=== PATIENT | male | born 1960 | race Caucasian/White ===

== ENCOUNTER 2024-04-20 15:39 | Inpatient (IN) | payer MEDICARE, MEDICAID ==
[~2024-04-20] VITALS: Ht 172.7 cm; Wt 90.5 kg
[2024-04-20] MEDS: LIDOcaine 1% W/epiNEPHrine 1:100,000 20ml vial IJ ONE (16:43)
[2024-04-20 16:59] LABS: BASOPHILS % (AUTO) 0.2 % (0-1); EOSINOPHILS # (AUTO) 0.1 X10'3 (0-0.9); EOSINOPHILS % (AUTO) 0.8 % (0-6); HEMATOCRIT 36.8 % (42.0-52.0); HEMOGLOBIN 12.3 g/dl (14.0-17.9); LYMPHOCYTES # (AUTO) 0.9 X10'3 (1.1-4.8); LYMPHOCYTES % (AUTO) 5.9 % (21-51); MEAN CORPUSCULAR HEMOGLOBIN 31.8 PG (27.0-31.0); MEAN CORPUSCULAR HGB CONC 33.4 g/dL (33.0-36.5); MEAN CORPUSCULAR VOLUME 95.4 FL (78-98); MEAN PLATELET VOLUME 7.9 FL (7.4-10.4); MONOCYTES # (AUTO) 1.4 X10'3 (0-0.9); MONOCYTES % (AUTO) 9.8 % (2-12); NEUTROPHILS # (AUTO) 12.2 X10'3 (1.8-7.7); NEUTROPHILS % (AUTO) 83.3 % (42-75); PLATELET COUNT 242 X10'3 (140-440); RED BLOOD COUNT 3.86 X10'6 (4.70-6.10); RED CELL DISTRIBUTION WIDTH 14.1 % (11.5-14.5); WHITE BLOOD COUNT 14.6 X10'3 (4.5-11.0)
[2024-04-20 17:08] LABS: ALBUMIN 3.3 G/DL (3.4-5.0); ANION GAP 9 (8-16); BLOOD UREA NITROGEN 20 MG/DL (7-18); CALCIUM 8.7 MG/DL (8.5-10.1); CHLORIDE 103 MMOL/L (99-107); CREATININE 1.11 MG/DL (0.60-1.10); GLUCOSE 90 MG/DL (70-104); POTASSIUM 3.4 MMOL/L (3.5-5.1); SODIUM 140 MMOL/L (135-145); eCRCL 64 ML/MIN; eGFR 66 ML/MIN
[2024-04-20] MEDS: normal saline 1000ml 1,000 ML IV SCH (17:10)
[2024-04-20] MEDS ORDERED: magnesium sulf-water 2g/50mL 50 ML IV PRN (17:10)
[2024-04-20] MEDS ORDERED: acetaminophen 325mg tablet PO PRN (17:10)
[2024-04-20] MEDS ORDERED: magnesium Cl slow-release 64mg tablet PO PRN (17:10)
[2024-04-20] MEDS ORDERED: potassium Cl 40MEQ/1/2NS 520ml 520 ML IV PRN (17:10)
[2024-04-20] MEDS: CefTRIAXone 2gm/D5W 50ml BAG 50 ML IV SCH (17:10)
[2024-04-20] MEDS ORDERED: morphine 2 MG/ML inj. syringe IV PRN ×2 (17:10)
[2024-04-20] MEDS ORDERED: magnesium sulf-water 4G/100mL 100 ML IV PRN (17:10)
[2024-04-20] MEDS ORDERED: ondansetron/PF 4mg/2ml inj IV PRN (17:10)
[2024-04-20] MEDS: enoxaparin 40mg/0.4ml syringe SUBCUT SCH (17:10)
[2024-04-20] MEDS ORDERED: potassium Cl 20 mEq SR tablet PO PRN (17:10)
[2024-04-20] MEDS ORDERED: bisacodyl 10mg suppository rectal RC PRN (17:10)
[2024-04-20 18:02] LABS: APPEARANCE,SYNOVIAL FLUID CLOUDY; COLOR,SYNOVIAL FLUID OTHER
[2024-04-20 18:03] LABS: CRYSTAL ID, SYN FLD CA PYROPHOSPHATE; LYMPHOCYTES,SYNOVIAL FLUID 54 % (0-75); MONOCYTES,SYNOVIAL FLUID 9 % (0-0); NEUTROPHILS,SYNOVIAL FLUID 37 % (0-25); SYN RBC 5800 /CU MM (0); SYN WBC 128 /CU MM (0-200); SYNOVIAL FLUID CRYSTALS QT FEW
[2024-04-20 18:21] LABS: C-REACTIVE PROTEIN 24.87 MG/DL (0.0-0.5)
[2024-04-20 18:35] LABS: GLUCOSE,SYNOVIAL FLUID 56 MG/DL; TOTAL PROTEIN,SYNOVIAL FLUID 3.9 GM/DL
[2024-04-20] MEDS: vancomycin/NS 1 GM ADD-VANTAGE 250 ML IV SCH (19:08)
[2024-04-20] MEDS: potassium Cl 20 mEq SR tablet PO PRN (20:43)
[2024-04-20 20:50] VITALS: BP 141/66; PULSE 86; RESP 16; TEMP 98.2; O2SAT 100
[2024-04-20] MEDS: HYDROcodone/acetaminophen 5mg/325mg tablet PO PRN (22:41)
[2024-04-20] MEDS ORDERED: ASPI-1071 PO (22:45)
[2024-04-20] MEDS ORDERED: ASPI81TA52 PO (22:46)
[2024-04-20] MEDS ORDERED: LOSA-415 PO (22:47)
[2024-04-21] VITALS (17 sets, daily range): BP systolic 102–152; BP diastolic 51–71; PULSE 72–98; RESP 14–18; TEMP 99–102.5; O2SAT 91–99
[2024-04-21] MEDS: acetaminophen 325mg tablet PO PRN (04:15)
[2024-04-21] MEDS: HYDROcodone/acetaminophen 10/325mg tab PO PRN (04:16)
[2024-04-21 07:40] LABS: BASOPHILS % (AUTO) 0.3 % (0-1); EOSINOPHILS # (AUTO) 0.2 X10'3 (0-0.9); EOSINOPHILS % (AUTO) 1.1 % (0-6); HEMATOCRIT 35.6 % (42.0-52.0); HEMOGLOBIN 11.7 g/dl (14.0-17.9); LYMPHOCYTES # (AUTO) 1.1 X10'3 (1.1-4.8); MEAN CORPUSCULAR HEMOGLOBIN 31.2 PG (27.0-31.0); MEAN CORPUSCULAR HGB CONC 32.8 g/dL (33.0-36.5); MEAN CORPUSCULAR VOLUME 95.2 FL (78-98); MEAN PLATELET VOLUME 7.7 FL (7.4-10.4); MONOCYTES # (AUTO) 1.2 X10'3 (0-0.9); MONOCYTES % (AUTO) 8.7 % (2-12); NEUTROPHILS % (AUTO) 81.9 % (42-75); PLATELET COUNT 252 X10'3 (140-440); RED BLOOD COUNT 3.74 X10'6 (4.70-6.10); RED CELL DISTRIBUTION WIDTH 14.2 % (11.5-14.5); WHITE BLOOD COUNT 13.4 X10'3 (4.5-11.0)
[2024-04-21 07:53] LABS: ALANINE AMINOTRANSFERASE 10 U/L (12-78); ALBUMIN/GLOBULIN RATIO 0.8 (1.1-1.5); ALKALINE PHOSPHATASE 89 IU/L (46-116); ANION GAP 7 (8-16); ASPARTATE AMINO TRANSFERASE 14 U/L (10-37); BILIRUBIN,TOTAL 0.4 MG/DL (0.1-1.0); BLOOD UREA NITROGEN 16 MG/DL (7-18); BUN/CREATININE RATIO 13.4 (10.0-20.0); CALCIUM 8.5 MG/DL (8.5-10.1); CHLORIDE 106 MMOL/L (99-107); CREATININE 1.19 MG/DL (0.60-1.10); GLUCOSE 95 MG/DL (70-104); POTASSIUM 4.2 MMOL/L (3.5-5.1); SODIUM 138 MMOL/L (135-145); TOTAL CARBON DIOXIDE 24.6 MMOL/L (24-32); TOTAL PROTEIN 6.6 G/DL (6.4-8.2); eCRCL 60 ML/MIN; eGFR 61 ML/MIN
[2024-04-21] MEDS ORDERED: morphine 2 MG/ML inj. syringe IV PRN (16:10)
[2024-04-21] MEDS: ringers solution, lacted 1,000 ML IV SCH (16:10)
[2024-04-21] MEDS ORDERED: proCHLORperazine 10 MG/2 ml inj IV PRN (16:10)
[2024-04-21] MEDS ORDERED: labetalol 20mg/4ml (5mg/ml) syringe IV PRN (16:10)
[2024-04-21] MEDS ORDERED: meperidine/PF 25mg/ml syringe IV PRN ×3 (16:10)
[2024-04-21] MEDS ORDERED: ondansetron/PF 4mg/2ml inj IV PRN (16:10)
[2024-04-21] MEDS ORDERED: enalaprilat dihydrate 2.5mg/2ml vial IV PRN (16:10)
[2024-04-21] MEDS ORDERED: morphine 4 MG/ML inj SYRINge IV PRN (16:10)
[2024-04-21] MEDS ORDERED: midazolam 1 mg/ML 2ml injection ONE (16:47)
[2024-04-21] MEDS ORDERED: sevoflurane 250ml liquid IH ONE (17:06)
[2024-04-21] MEDS: magnesium hydroxide 30ml (MOM) UD suspension PO PRN (21:03)
[2024-04-22] VITALS (8 sets, daily range): BP systolic 110–123; BP diastolic 56–63; PULSE 50–66; RESP 14–18; TEMP 96.4–98.9; O2SAT 96–99
[2024-04-22] MEDS: VANCOMYCIN LEVEL IV ONE (06:30)
[2024-04-22 07:45] LABS: BASOPHILS % (AUTO) 0.2 % (0-1); EOSINOPHILS % (AUTO) 0 % (0-6); HEMATOCRIT 35.5 % (42.0-52.0); LYMPHOCYTES # (AUTO) 0.5 X10'3 (1.1-4.8); LYMPHOCYTES % (AUTO) 5.4 % (21-51); MEAN CORPUSCULAR HEMOGLOBIN 32.2 PG (27.0-31.0); MEAN CORPUSCULAR HGB CONC 33.9 g/dL (33.0-36.5); MEAN CORPUSCULAR VOLUME 94.9 FL (78-98); MONOCYTES # (AUTO) 0.3 X10'3 (0-0.9); MONOCYTES % (AUTO) 2.8 % (2-12); NEUTROPHILS # (AUTO) 8.1 X10'3 (1.8-7.7); NEUTROPHILS % (AUTO) 91.6 % (42-75); PLATELET COUNT 281 X10'3 (140-440); RED BLOOD COUNT 3.74 X10'6 (4.70-6.10); WHITE BLOOD COUNT 8.9 X10'3 (4.5-11.0)
[2024-04-22 08:01] LABS: ALANINE AMINOTRANSFERASE 11 U/L (12-78); ALBUMIN 2.7 G/DL (3.4-5.0); ALBUMIN/GLOBULIN RATIO 0.7 (1.1-1.5); ALKALINE PHOSPHATASE 83 IU/L (46-116); ANION GAP 9 (8-16); ASPARTATE AMINO TRANSFERASE 12 U/L (10-37); BILIRUBIN,TOTAL 0.2 MG/DL (0.1-1.0); BLOOD UREA NITROGEN 18 MG/DL (7-18); BUN/CREATININE RATIO 16.8 (10.0-20.0); CALCIUM 8.7 MG/DL (8.5-10.1); CHLORIDE 108 MMOL/L (99-107); CREATININE 1.07 MG/DL (0.60-1.10); GLUCOSE 210 MG/DL (70-104); POTASSIUM 4.2 MMOL/L (3.5-5.1); SODIUM 143 MMOL/L (135-145); TOTAL CARBON DIOXIDE 25.8 MMOL/L (24-32); TOTAL PROTEIN 6.7 G/DL (6.4-8.2); eCRCL 67 ML/MIN; eGFR 69 ML/MIN
[2024-04-22 08:02] LABS: VANCOMYCIN,TROUGH 12.2 ug/mL (10.0-20.0)
[2024-04-22] MEDS: VANCOmycin 1250MG/NS 250ml Bag 250 ML IV SCH (10:17)
[2024-04-23 06:31] VITALS: BP 148/63; PULSE 50; RESP 18; TEMP 96.8; O2SAT 100
[2024-04-23 08:00] VITALS: RESP 18; O2SAT 98
[2024-04-23 08:40] LABS: BASOPHILS % (AUTO) 0.2 % (0-1); EOSINOPHILS % (AUTO) 0.3 % (0-6); HEMATOCRIT 32.3 % (42.0-52.0); HEMOGLOBIN 10.6 g/dl (14.0-17.9); LYMPHOCYTES # (AUTO) 1.1 X10'3 (1.1-4.8); LYMPHOCYTES % (AUTO) 9.7 % (21-51); MEAN CORPUSCULAR HEMOGLOBIN 31.4 PG (27.0-31.0); MEAN CORPUSCULAR VOLUME 95.2 FL (78-98); MONOCYTES # (AUTO) 0.6 X10'3 (0-0.9); MONOCYTES % (AUTO) 5.5 % (2-12); NEUTROPHILS # (AUTO) 9.3 X10'3 (1.8-7.7); NEUTROPHILS % (AUTO) 84.3 % (42-75); PLATELET COUNT 278 X10'3 (140-440); RED BLOOD COUNT 3.39 X10'6 (4.70-6.10); RED CELL DISTRIBUTION WIDTH 14.3 % (11.5-14.5)
[2024-04-23 09:00] LABS: ALANINE AMINOTRANSFERASE 16 U/L (12-78); ALBUMIN 2.6 G/DL (3.4-5.0); ALBUMIN/GLOBULIN RATIO 0.7 (1.1-1.5); ALKALINE PHOSPHATASE 124 IU/L (46-116); ANION GAP 9 (8-16); ASPARTATE AMINO TRANSFERASE 12 U/L (10-37); BILIRUBIN,TOTAL 0.2 MG/DL (0.1-1.0); BLOOD UREA NITROGEN 16 MG/DL (7-18); BUN/CREATININE RATIO 15.4 (10.0-20.0); CALCIUM 8.5 MG/DL (8.5-10.1); CHLORIDE 111 MMOL/L (99-107); CREATININE 1.04 MG/DL (0.60-1.10); GLUCOSE 109 MG/DL (70-104); POTASSIUM 3.9 MMOL/L (3.5-5.1); SODIUM 146 MMOL/L (135-145); TOTAL CARBON DIOXIDE 25.7 MMOL/L (24-32); TOTAL PROTEIN 6.2 G/DL (6.4-8.2); eCRCL 69 ML/MIN; eGFR 72 ML/MIN
[2024-04-23] MEDS ORDERED: VANCOMYCIN LEVEL IV ONE (20:30)
== END 2024-04-23 14:00 | disposition home or self-care (01) | DRG 500 ==
LOC: ER 15:39 → ED HOLD 17:16 → ORTHO 4S 21:05
PROVIDERS: ADMIT Internal Medicine; ATTEND Internal Medicine
PROC: 0S9D3ZZ Drainage of Left Knee Joint, Percutaneous Approach (ICD-10-PCS; 2024-04-20)
PROC: 3E0T3BZ Introduction of Anesthetic Agent into Peripheral Nerves and Plexi, Percutaneous Approach (ICD-10-PCS; 2024-04-21)
PROC: 3E0T33Z Introduction of Anti-inflammatory into Peripheral Nerves and Plexi, Percutaneous Approach (ICD-10-PCS; 2024-04-21)
PROC: 0MBP0ZZ Excision of Left Knee Bursa and Ligament, Open Approach (ICD-10-PCS; principal; 2024-04-21 17:06)
PROC: 02HV33Z Insertion of Infusion Device into Superior Vena Cava, Percutaneous Approach (ICD-10-PCS; 2024-04-23)
DX: T84.54XA Infection and inflammatory reaction due to internal left knee prosthesis, initial encounter (principal); A41.9 Sepsis, unspecified organism; E87.0 Hyperosmolality and hypernatremia; M00.862 Arthritis due to other bacteria, left knee; E87.6 Hypokalemia; I10 Essential (primary) hypertension; R73.03 Prediabetes; D72.829 Elevated white blood cell count, unspecified; Y84.8 Other medical procedures as the cause of abnormal reaction of the patient, or of later complication, without mention of misadventure at the time of the procedure; E66.9 Obesity, unspecified; Z68.30 Body mass index [BMI] 30.0-30.9, adult; Y92.89 Other specified places as the place of occurrence of the external cause
CPT/HCPCS: 36415; 36569; 76942; 80048; 80053; 80202; 82945; 83605; 84145; 84157; 85025; 85651; 86140; 87040; 87070; 87075; 87077; 87081; 87186; 88108; 88305; 89051; 89060; 97116; 97161; 97164; 97530; 99285; A4615; A4618; A6222; A6223; A6446; A6449; A7000; C1751; G0378; J0696; J1100; J1650; J2250; J2405; J2704; J2795; J3010; J3370; J3490; J7030; J7120